=== PATIENT | female | born 1970 | race Caucasian/White ===

== ENCOUNTER 2020-06-09 08:25 | Outpatient (CLI) | payer BC | END 2020-06-09 08:26 | disposition home or self-care (01) | LOC: BICMAMMO 08:25 | PROVIDERS: ATTEND Physician Assistant | DX: Z12.39 Encounter for other screening for malignant neoplasm of breast (principal); R92.8 Other abnormal and inconclusive findings on diagnostic imaging of breast; N63.14 Unspecified lump in the right breast, lower inner quadrant | CPT/HCPCS: 19083; 77066; 88305; G0279 ==

== ENCOUNTER 2023-10-31 14:46 | Outpatient (CLI) | payer OTHER | END 2023-10-31 14:47 | disposition home or self-care (01) | LOC: BICRAD 14:46 | PROVIDERS: ATTEND Family Medicine | DX: M25.551 Pain in right hip (principal); M25.431 Effusion, right wrist; M19.031 Primary osteoarthritis, right wrist; M47.816 Spondylosis without myelopathy or radiculopathy, lumbar region | CPT/HCPCS: 72100 ==

== ENCOUNTER 2023-11-09 08:42 | Outpatient (CLI) | payer OTHER | END 2023-11-09 08:43 | disposition home or self-care (01) | LOC: BICMAMMO 08:42 | PROVIDERS: ATTEND Family Medicine | DX: Z12.31 Encounter for screening mammogram for malignant neoplasm of breast (principal); Z13.820 Encounter for screening for osteoporosis; Z78.0 Asymptomatic menopausal state | CPT/HCPCS: 77063; 77067; 77080 ==